=== PATIENT | male | born 1955 | race Hispanic/Latino ===

== ENCOUNTER → 2018-07-03 | Outpatient (CLI) | payer BC ==
[~2018-07-03] VITALS: Ht 167.6 cm; Wt 124.7 kg
[~2018-07-03] MED LIST: ACET-66 PO; AMLO1TAB33 PO; ASPI-1012 PO; CELE200 PO; CLOP75TA32 PO; FENO145T PO; MECL-111 PO; METF-444 PO; OXYC5 PO; PREG25 PO; REGADENOSON 0.4 MG/5 ML PF SYG IVP SCH; SIMV80TA91 PO
== END | disposition home or self-care (01) ==
LOC: SHCH 08:13
PROVIDERS: ATTEND Internal Medicine Cardiovascular Disease
DX: I45.6 Pre-excitation syndrome (principal); I10 Essential (primary) hypertension
CPT/HCPCS: 78452; 93017; 96374; A9500 ×2; J2785

== ENCOUNTER → 2018-07-10 | Outpatient (CLI) | payer BC ==
[~2018-07-10] MED LIST changes: -REGADENOSON 0.4 MG/5 ML PF SYG IVP SCH
== END | disposition home or self-care (01) ==
LOC: SHCH 14:41
PROVIDERS: ATTEND Internal Medicine Cardiovascular Disease
DX: I11.9 Hypertensive heart disease without heart failure (principal)
CPT/HCPCS: 93306